=== PATIENT | male | born 1960 | race African-American/Black ===

== ENCOUNTER 2017-02-12 12:38 | Emergency (ER) | payer OTHER ==
--- NOTE | ~2017-02-12 | ER ---
PATIENT'S NAME: [facility] AGE: 56 Y [address] ROOM: [place] [id number] LOCATION: ED ADMIT DATE: 02/12/2017 ER/Outpatient Report DISCHARGE DATE: 02/12/2017 FAMILY PHYSICIAN: Jonah Escobedo MD ATTENDING PHYSICIAN: Doug Osman Time of Arrival: 1238 hours. Time of Evaluation: 1242 hours. CHIEF COMPLAINT: Headache, no energy. HISTORY OF PRESENT ILLNESS: The patient states he has had a frontal headache for the past 3 to 4 days. Has not had any fever or chills. Denies having any vision changes. Has not had photophobia. Denies being nauseated, has not vomited. States he just feels like he has no energy. He has not had headaches in the past. States that he did check his blood pressure at [facility] the other day and it was elevated. He is not sure if the headache is because of his blood pressure is up or his blood pressure is up because of the headache. ALLERGIES: HE HAS NO KNOWN ALLERGIES. CURRENT MEDICATIONS: Tramadol. PAST MEDICAL HISTORY: Chronic right hip pain. PAST SURGERIES: Left total hip. SOCIAL HISTORY: Works at [employer]. Denies use of tobacco, drugs, or alcohol. Presents to the ER accompanied by his . Reports Dr. Escobedo is his primary provider. REVIEW OF SYSTEMS: All negative other than those mentioned in the HPI. PHYSICAL EXAMINATION: VITAL SIGNS: He weighed 92.1 kg, blood pressure is 159/107, pulse is 79, respirations 16, temperature is 97.6, and O2 saturation is 97% on room air. GENERAL: He is awake, alert, and oriented x4. PATIENT'S NAME: [facility] AGE: 56 Y [address] ROOM: [place], [place] [id number] LOCATION: [facility] ADMIT DATE: 02/12/2017 ER/Outpatient Report DISCHARGE DATE: 02/12/2017 FAMILY PHYSICIAN: Jonah Escobedo MD ATTENDING PHYSICIAN: Doug Osman SKIN: [place], warm, and dry. RESPIRATIONS: Even and nonlabored. Pupils are equal and reactive to light. Extraocular movement is intact. Negative nystagmus. Denies dizziness with pupil check. TMs are pearly armas. Nasal is clear. Oropharynx is pink and moist. No redness of the posterior pharynx. NECK: Supple. No lymphadenopathy. LUNGS: Lung sounds are clear throughout. HEART: Regular rate and rhythm. ABDOMEN: Soft. Nondistended. Bowel sounds are present. MUSCULOSKELETAL: He moves all extremities strongly and equally. Walked in with a steady even gait. Cranial nerves II through XII are grossly intact. EMERGENCY DEPARTMENT COURSE: IV was started. Normal saline fluids were initiated at a wide-open rate. He was given Zofran 4 mg IV and Toradol 30 mg IV. LABORATORY DATA AND X-RAYS: Lab work was done. CBC is within normal limits. Chem panel is within normal limits. BUN is 19 with a creatinine of 1.3. GFR is 57. Cardiac enzymes are negative. With the fluid and the medications, he reports he is feeling better. Blood pressure did come down. Last blood pressure was 138/83. IMPRESSION: 1. Headache. 2. Hypertension. 3. Mild dehydration. PLAN: The patient will be discharged home. Rest. Fluids. Nonalcoholic. Follow up with his primary provider in the next 2 to 3 days. Encouraged him to go in and at least have his blood pressure rechecked to make sure that he was not developing hypertension. Encouraged him to drink plenty of fluids while he was working. He verbalized understanding. JAMES WILLINGHAM APRN FOR [facility]/[place] /[id number] d: 02/12/17 1856 t: 02/16/17 0659, OUTPATIENT REPORT
[2017-02-12 13:38] LABS: BASOPHIL % 0.4 %; EOSINOPHIL # 0.2 K/uL (0.0-0.5); HEMATOCRIT 42.1 % (37.0-53.0); HEMOGLOBIN 13.8 g/dL (12.0-17.0); IMMATURE GRANULOCYTE % 0.2 %; LYMPHOCYTE # 1.6 K/uL (0.8-4.0); LYMPHOCYTE % 30.6 %; MCH 29.9 pg (27.0-34.0); MCHC 32.8 gm/dL (32.0-36.5); MCV 91.3 fl (83.0-98.0); MONOCYTE # 0.5 K/uL (0.0-1.0); MONOCYTE % 10.4 %; MPV 9.8 fl (9.4-12.4); NEUTROPHIL # (ANC) 2.8 K/uL (1.4-9.0); NEUTROPHIL % 54.4 %; NRBC % 0 /100WBC (0-0.00); PLATELET COUNT 186 K/uL (150-450); RBC 4.61 M/uL (4.00-6.00); RDW-CV 13.2 % (11.9-14.6); WBC 5.2 K/uL (4.0-11.0)
[2017-02-12 13:46] LABS: INR - (THERAPEUTIC) 1.04 (0.92-1.07); PROTIME 10.9 SECONDS (9.8-11.4); PTT 31 SECONDS (25-32)
[2017-02-12 13:58] LABS: ALBUMIN 3.4 gm/dL (3.5-5.0); ALK PHOS 73 IU/L (33-138); ALT 29 IU/L (12-78); ANION GAP 10.3 (10.0-19.0); AST 20 IU/L (10-40); BLOOD UREA NITROGEN 19 mg/dL (6-24); CALCIUM 8.2 mg/dL (8.5-10.5); CHLORIDE 107 mMol/L (96-110); CO2 25 mMol/L (22-32); CPK 248 IU/L (35-332); CREATININE 1.3 mg/dL (0.6-1.3); ESTIMATED GFR (MDRD EQUATION) 57; POTASSIUM 4.3 mMol/L (3.7-5.1); SODIUM 138 mMol/L (135-145); TOTAL BILIRUBIN 0.7 mg/dL (0.0-1.5)
== END 2017-02-12 14:28 | disposition disaster alternative care site (69) ==
LOC: GMED 12:38
PROVIDERS: Nurse Practitioner Family
DX: R51 Headache (principal); I10 Essential (primary) hypertension; E86.0 Dehydration; G89.29 Other chronic pain; Z98.890 Other specified postprocedural states; Z79.891 Long term (current) use of opiate analgesic
CPT/HCPCS: J1885; J2001; J2405; J7030